=== PATIENT | female | born 1995 | race Hispanic/Latino ===

== ENCOUNTER 2017-03-28 13:35 | Emergency (ER) | payer OTHER ==
[~2017-03-28] VITALS: Ht 175.3 cm; Wt 95.5 kg
[2017-03-28 13:41] VITALS: BP 148/97; PULSE 97; RESP 16; O2SAT 99
--- NOTE | 2017-03-28 13:51 | ED.REPORT ---
HPI-Dyspnea / Wheezing Date of Service Mar 28, 2017 ED Provider: Chris Shaikh DO Pt is a 21 year old female who presents to the ED with concerns for difficulty breath for the past 30 minutes, onset while she was at work. She states that prior to her symptoms she was experiencing a headache, but was otherwise feeling normal. Pt states that this has occurred in the past, but she has never been given a definitive diagnosis. She reports a pain in her upper chest, worse with deep breathing. She denies any other symptoms. Nursing Notes Stated Complaint: SOB Chief Complaint: Respiratory Distress Nursing Notes Reviewed: Yes Allergies: Coded Allergies: No Known Allergies (Unverified , 03/28/17) General Time Seen by MD: 13:49 Chief Complaint Shortness of breath Hx Obtained From: Patient Arrived By: Walk-in Sudden in Onset?: Yes Onset Occurred: 16 - 30 minutes ago Context of Onset: Anxiety Symptom Duration: Since onset Quality: Painful Severity: Current: Mild Severity: Maximum: Moderate Similar Sx Previous: Yes Risk Factors PERC Rule All PERC criteria "No" Well's Criteria for PE Well's PE Score: 0-2 pts (low risk 3.6%) Past Medical History Past Medical History Healthy Review of Systems Constitutional: Denies: Chills, Fever, Malaise, Weakness - generalized Respiratory: Reports: Shortness of breath, Denies: Non-productive cough, Wheezing Cardiovascular: Reports: Chest pain, Denies: Parox nocturnal dyspnea Musculoskeletal: Denies: Back pain, Extremity pain, Neck pain Skin: Denies Diaphoresis Complete sys rev & neg: except as marked. Physical Exam Initial Vital Signs Vital Signs (First) Date Time Temp Pulse Resp B/P Pulse Ox O2 Delivery O2 Flow Rate FiO2 03/28/17 13:41 36.6 97 16 148/97 99 Room Air Initial VS: Reviewed Head / Eyes: Atraumatic, Normocephalic, PERRL ENT: Mucous membranes moist, Conjunctiva normal, No scleral icterus Abdomen / GI: Soft, Non-tender, No guarding, No rebound, No distention Skin: Warm, Dry, No cyanosis Neurologic: Alert, Oriented, Nonfocal General/Constitutional: Awake, Alert Distress / Hydration: Positive: Distress moderate Behavior: Positive: Anxious, Tearful Neck: Atraumatic, Supple Respiratory / Chest: Atraumatic, Breath sounds NL, Breath sounds = bilat, No respiratory distress Cardiovascular: Heart rate NL, Regular rhythm, Heart sounds NL Interpretation & Diagnostics Lab Results Interpretation Test 03/28/17 14:42 ECG Interpretation ECG Interpretation: SR - 84 Time: 14:14 Interpreted by: ED physician Re-Eval/Medical Decision Med Decision/Clinical Course Unlikely to be acute coronary syndrome or pulmonary embolism, patient has had these symptoms recurrently, unclear whether this is anxiety or muscle skeletal pain however does not seem to be life-threatening. Chest x-ray and EKG are reassuring. Patient's symptoms are improved. Agrees to follow up closely with primary care. Strict return and follow-up precautions given. Source of Hx: Old records Re-Evaluation/Progress : Time of Eval: 14:36 Re-Evaluation/Progress Note: Pt is rechecked and informed of her labs and imaging results and the plan to discharge her at this time. She understands and agrees, all questions are addressed. Counseled Regarding: Diagnosis, Lab results, When/why to return to ED Discharge & Departure Impression: Primary Impression: Chest pain Disposition: Home Discharge Condition All VS Reviewed: Yes Condition: Stable Additional Instructions: No obvious life-threatening cause of your symptoms have been found. Call your primary care doctor in the morning for close follow-up. Return to the ER as needed if you develop severe recurrent chest pain, severe difficulty breathing, or other concerns. Referrals: Clementina Cantu DO (PCP) Bhupinder Attestation Portions of this note were transcribed by Luz Elena Winn. I, Dr. Shaikh personally performed the history, physical exam and medical decision-making; I reviewed and confirmed the accuracy of the information in the transcribed note. Signed by: Bhupinder Espinosa, 03/28/2017 14:36 copies to: Clementina Cantu Timothy S DO Mar 28, 2017 13:51 HOMERO WINN Mar 28, 2017 13:58
[2017-03-28] MEDS ORDERED: LORazepam 1 mg Tablet PO ONE (14:00)
[2017-03-28] MEDS ORDERED: LidocaineVisc 2%:Antacid 1:1 10 mL Syringe PO SCH (14:00)
--- NOTE | 2017-03-28 14:47 | DRSVH ---
PROCEDURE: X-RAY CHEST, TWO VIEWS ([id number]) INDICATIONS: chest pain TECHNIQUE: 2 views of the chest were acquired. COMPARISON: None. FINDINGS: Surgical changes and devices: None. Lungs and pleura: No pleural effusions or pneumothorax. Lungs are clear. Mediastinum: Mediastinal contours are normal. Heart size is normal. Bones and chest wall: No suspicious bony abnormalities. Soft tissues appear unremarkable. IMPRESSION: No acute or active disease is seen in the two-view chest. Cause of pain is not identified . Dictated by: Sal Rich M.D. on 03/28/2017 at 14:44 Approved by: Sal Rich M.D. on 03/28/2017 at 14:44
[2017-03-28 15:04] VITALS: BP 130/86; PULSE 82; O2SAT 99
== END 2017-03-28 15:02 | disposition home or self-care (01) ==
LOC: SED 13:35
DX: R07.9 Chest pain, unspecified (principal)